=== PATIENT | female | born 1935 | race Caucasian/White ===

== ENCOUNTER → 2016-09-28 | Outpatient (CLI) | payer MEDICARE, BC ==
[~2016-09-28] MED LIST: ALLFEN400 MG PO; CALCIUM CARBONATE; CALCIUM CITRAT200 MG PO; CARAFATE 1GM1 G PO; CENTRUM SILVER1 CTB PO; CORGARD20 MG PO; FOSAMAX PO; GLUCOSAMINE; MVI; NEXIUM 40MG40 MG PO; PERCOCET 325 MG1 TA2 PO; POTASSIUM CHLO10 ME2 PO; QUESTRAN4 GM/9 GM PO; RESTORIL 1515 MG/CAP PO; SUDAFED30 MG PO; VITAMIN B12250 MCG PO; VITAMIN C500 MG PO; VITAMIN D 1001000 IU PO; ZYRTEC 10MG10 MG PO
== END ==
LOC: MC.RAD 09:57
DX: Z12.31 Encounter for screening mammogram for malignant neoplasm of breast (principal)

== ENCOUNTER → 2018-04-15 | Outpatient (CLI) | payer MEDICARE, BC | LOC: MC.RAD 14:34 | DX: Z12.31 Encounter for screening mammogram for malignant neoplasm of breast (principal) ==

== ENCOUNTER → 2019-12-05 | Outpatient (CLI) | payer MEDICARE, BC | LOC: MC.RAD 14:23 | DX: Z12.31 Encounter for screening mammogram for malignant neoplasm of breast (principal) ==

== ENCOUNTER → 2021-01-22 | Outpatient (CLI) | payer MEDICARE, BC | LOC: MC.RAD 09:30 | DX: Z12.31 Encounter for screening mammogram for malignant neoplasm of breast (principal) ==

== ENCOUNTER → 2022-06-02 | Outpatient (CLI) | payer MEDICARE, BC | LOC: MC.RAD 10:13 | DX: Z12.31 Encounter for screening mammogram for malignant neoplasm of breast (principal) ==

== ENCOUNTER 2023-06-01 11:04 | Emergency (ER) | payer MEDICARE, BC ==
[~2023-06-01] VITALS: Ht 154.9 cm; Wt 50.9 kg
[2023-06-01 11:09] VITALS: PULSE 54; TEMP 98.3
[2023-06-01] MEDS ORDERED: Acetaminophen 500 MG TAB PO ONE (12:00)
[2023-06-01 12:25] LABS: PH 6.5 (5.0-8.5); URINE APPEARANCE CLEAR (CLEAR/HAZY); URINE BLOOD NEGATIVE (NEGATIVE); URINE COLOR YELLOW (YELLOW); URINE GLUCOSE NEGATIVE (NEGATIVE); URINE KETONE TRACE (NEGATIVE); URINE NITRATE NEGATIVE (NEGATIVE); URINE PROTEIN(semi-quant) NEGATIVE (NEGATIVE); URINE UROBILINOGEN 0.2 E.U/dL (0.2-1.0)
[2023-06-01 12:34] LABS: COLLECTION METHOD CLEAN CATCH
[2023-06-01 12:52] VITALS: BP 151/67
== END 2023-06-01 12:52 | disposition home or self-care (01) ==
LOC: COL.ER 11:04
PROVIDERS: Physician Assistant
DX: R33.9 Retention of urine, unspecified (principal); Z87.891 Personal history of nicotine dependence
CPT/HCPCS: 31860; A4314